=== PATIENT | male | born 1945 | race Caucasian/White ===

== ENCOUNTER 2017-09-15 11:22 | Emergency (ER) | payer MEDICARE, OTHER, SELFPAY ==
[2017-09-15 11:23] VITALS: BP 140/75; PULSE 56; RESP 16; TEMP 36.9; O2SAT 98; BMI 29.1
--- NOTE | 2017-09-15 11:42 | RAD_ITS ---
STUDY: X-RAY - RIGHT KNEE REASON FOR EXAM: Male, 72 years old. Pain following injury. TECHNIQUE: 3 view(s) of the knee. COMPARISON: None. FINDINGS: Normal visualized distal femur. Normal visualized proximal tibia and fibula. Normal proximal tibiofibular articulation. Normal medial femorotibial compartment. Normal lateral femorotibial compartment. Normal patellofemoral articulation. There are atherosclerotic calcifications. RAD/Knee 3 Views IMPRESSION: Normal x-ray examination of the knee. Electronically Signed: Michael Grant MD at 12:46 EDT Tel [phone], Service support ,
--- NOTE | 2017-09-15 12:56 | ED.VISSUMM ---
- ER Visit Summary Date of Service: 09/15/17 Chief Complaint: Right knee pain History of Present Illness: The patient is a 72 M who has right knee pain. Started yesterday. He stepped in a hole. He twisted his knee when that happened. He took no pain medications for this at home. He has been ambulatory on the knee Physical Examination: Vital signs reviewed. Right knee exam reveals no tenderness palpation. He does have pain when he ranges it and flexes it. Extensor mechanism is intact. He has 2+ pulses. Test Results: Right x-ray normal Emergency Department Course and Treatment: Patient will be given ibuprofen for pain at home. He will ice and elevate and will follow up with his PCP Treatment Plan: [] Disposition: Discharge Impression: Right knee pain This note was generated with [employer] dictation software. It may contain incorrect words, spelling, and punctuation that were not noted in review of the chart prior to signing ED Disposition - Plan for ED Patient: Chief Complaint: Lower Extremity Injury Referrals: Roland Adler MD [Primary Care Provider] -
--- NOTE | 2017-09-15 12:57 | ED.DEP ---
ED Disposition - Plan for ED Patient: Disposition: Home or Assisted Living Chief Complaint: Lower Extremity Injury Instructions: ED Knee Pain [facility] Prescriptions: Ibuprofen 600 mg PO TID #10 tab Referrals: Roland Adler MD [Primary Care Provider] -
[2017-09-15 13:19] VITALS: PULSE 62; RESP 16; O2SAT 98
== END 2017-09-15 13:19 | disposition home or self-care (01) ==
PROVIDERS: Emergency Provider Emergency Medicine; Family Provider Family Medicine; PCP Family Medicine
DX: M25.561 Pain in right knee (principal); I10 Essential (primary) hypertension; Z79.82 Long term (current) use of aspirin; Z79.899 Other long term (current) drug therapy
CPT/HCPCS: 73562; 99282

== ENCOUNTER → 2017-10-10 07:49 | Outpatient (CLI) | payer MEDICARE, OTHER, SELFPAY ==
[2017-10-10 10:38] LABS: AST(SGOT) 16 U/L (15-37); Alanine Aminotransfer ALT/SGPT 20 U/L (16-61); Albumin, Serum 3.9 g/dL (3.2-5.0); Alkaline Phosphatase 77 U/L (45-117); Bilirubin, Direct 0.21 mg/dL (0.00-0.30); Cholesterol 131 mg/dL (200); Globulin 3.8 g/dL (2.2-4.2); High Density Lipoprotein 40 mg/dL; Protein, Total 7.7 g/dL (6.4-8.2); Triglycerides 159 mg/dL; Very Low Density Lipoprotein 32 mg/dL (5-40)
[2017-10-10 11:31] LABS: Hemoglobin A1c 7.1 % (4.2-6.3)
== END ==
PROVIDERS: Family Provider Family Medicine; PCP Family Medicine; Visit Provider Family Medicine
DX: E11.65 Type 2 diabetes mellitus with hyperglycemia (principal); E78.5 Hyperlipidemia, unspecified
CPT/HCPCS: 36415; 80061; 80076; 83036

== ENCOUNTER → 2017-12-07 12:32 | Outpatient (CLI) | payer MEDICARE, OTHER, SELFPAY ==
--- NOTE | 2017-12-07 12:40 | RAD_ITS ---
STUDY: X-RAY CHEST REASON FOR EXAM: Male, 72 years old. Chest pain/pressure, cough TECHNIQUE: PA and lateral views of the chest. COMPARISON: 2010 FINDINGS: The lungs are clear and expanded. There is no demonstrated pleural abnormality. Normal size heart. Normal mediastinum and kim. Normal visualized pulmonary arteries. There is atherosclerotic calcification of the aortic arch with tortuosity. Normal visualized thoracic spine. Normal visualized ribs, clavicles, and shoulders. There is no demonstrated abnormality of the visualized soft tissue structures of the upper abdomen. RAD/Chest PA and Lateral IMPRESSION: No acute pulmonary process Electronically Signed: Dominic Vang MD at 13:50 EDT , Service support ,
== END ==
PROVIDERS: Family Provider Family Medicine; PCP Family Medicine
DX: R05 Cough (principal)
CPT/HCPCS: 71046

== ENCOUNTER → 2018-04-19 10:39 | Outpatient (CLI) | payer MEDICARE, OTHER, SELFPAY ==
[2018-04-19 12:04] LABS: Absolute Lymphocyte Count 1.52 X10^3/ul (0.83-4.51); Absolute Neutrophil Count 3.5 X10^3/uL (2.0-7.7); Basophil# 0.03 X10^3/uL; Basophil% 0.5 % (0-1); Eosinophil# 0.27 X10^3/uL; Eosinophils% 4.6 % (0-5); Hematocrit 48.1 % (40-54); Hemoglobin 15.8 g/dl (13.0-16.5); Lymphocyte # 1.52 X10^3/ul (4.0); Lymphocyte % 25.9 % (19-41); Mean Corp Hgb Conc 32.8 g/gl (32-36); Mean Corpuscular Hgb 30.8 pg (27.0-32.0); Mean Corpuscular Volume 93.8 fL (80-94); Mean Platelet Vol. 9.6 fl (6.2-12.0); Monocyte# 0.58 X10^3/uL; Monocyte% 9.9 % (0-10); Neutrophil # 3.45 X10^3/uL (2.7-7.7); Neutrophil % 58.8 % (47-70); Platelet Count 208 K/mm3 (150-450); RBC Distribution Width CV 13.1 % (11.6-14.6); Red Blood Count 5.13 M/mm3 (4.6-6.2); White Blood Count 5.9 K/mm3 (4.4-11.0)
[2018-04-19 12:06] LABS: Color, Urine Yellow (Yellow); Glucose, Dipstick Normal (Normal); Ketone-Dipstick Negative (Negative); Leukocyte Esterase-Dipstick Negative /ul (Negative); Nitrite-Dipstick Negative (Negative); Occult Blood-Urine Negative /ul (Negative); Protein-Dipstick 15 mg/dl (Negative); Urine Bilirubin Dipstick Negative (Negative); Urine Clarity Sl. Cloudy (Clear); Urine Urobilinogen Normal (Normal)
[2018-04-19 12:08] LABS: POSITIVE COUNT NO; POSITIVE DIFFERENTIAL NO; POSITIVE MORPHOLOGY NO
[2018-04-19 12:21] LABS: Hemoglobin A1c 6.8 % (4.2-6.3)
[2018-04-19 12:22] LABS: ALB/GLOB Ratio 1.1 RATIO (0.9-2.4); AST(SGOT) 13 U/L (15-37); Alanine Aminotransfer ALT/SGPT 32 U/L (16-61); Alkaline Phosphatase 70 U/L (45-117); Anion Gap 9 (5-15); BUN 19 mg/dL (7-18); BUN/Creat Ratio 17.8 RATIO (10-20); Calcium,Total 8.7 mg/dL (8.5-10.1); Chloride 106 mmol/L (98-107); Cholesterol 134 mg/dL (200); Creatinine, Serum 1.07 mg/dL (0.70-1.30); EST Glomerular Filtration Rate 72 mL/min (>60); Est Glom Filt Rate - Afr Amer 87 mL/min (>60); Globulin 3.5 g/dL (2.2-4.2); Glucose 126 mg/dL (74-106); High Density Lipoprotein 43 mg/dL; PSA,Total - Annual Screen 2.23 ng/mL (0.00-4.00); Potassium 4.2 mmol/L (3.5-5.1); Protein, Total 7.5 g/dL (6.4-8.2); Sodium Level 140 mmol/L (136-145); Triglycerides 175 mg/dL; Very Low Density Lipoprotein 35 mg/dL (5-40)
== END ==
PROVIDERS: Family Provider Family Medicine; PCP Family Medicine; Referring Provider Family Medicine; Visit Provider Family Medicine
DX: Z00.00 Encounter for general adult medical examination without abnormal findings (principal); E11.65 Type 2 diabetes mellitus with hyperglycemia; I10 Essential (primary) hypertension; E78.5 Hyperlipidemia, unspecified; Z12.5 Encounter for screening for malignant neoplasm of prostate
CPT/HCPCS: 36415; 80053; 80061; 81002; 83036; 84153; 85025; G0103

== ENCOUNTER → 2018-10-11 07:57 | Outpatient (CLI) | payer MEDICARE, OTHER, SELFPAY ==
[2018-10-11 10:34] LABS: AST(SGOT) 14 U/L (15-37); Alanine Aminotransfer ALT/SGPT 23 U/L (16-61); Albumin, Serum 3.9 g/dL (3.2-5.0); Alkaline Phosphatase 85 U/L (45-117); Bilirubin, Direct 0.19 mg/dL (0.00-0.30); Cholesterol 124 mg/dL (200); Globulin 3.5 g/dL (2.2-4.2); High Density Lipoprotein 41 mg/dL; Protein, Total 7.4 g/dL (6.4-8.2); Triglycerides 193 mg/dL; Very Low Density Lipoprotein 39 mg/dL (5-40)
[2018-10-11 10:38] LABS: Hemoglobin A1c 6.7 % (4.2-6.3)
== END ==
PROVIDERS: Family Provider Family Medicine; PCP Family Medicine; Referring Provider Family Medicine; Visit Provider Family Medicine
DX: E78.5 Hyperlipidemia, unspecified (principal); E11.65 Type 2 diabetes mellitus with hyperglycemia
CPT/HCPCS: 36415; 80061; 80076; 83036

== ENCOUNTER → 2019-11-06 08:02 | Outpatient (CLI) | payer MEDICARE, OTHER, SELFPAY ==
[2019-11-06 10:09] LABS: Absolute Lymphocyte Count 1.16 X10^3/uL (0.83-4.51); Absolute Neutrophil Count 3.7 X10^3/uL (2.0-7.7); Basophil# 0.05 X10^3/uL; Basophil% 0.9 % (0-1); Color, Urine Yellow (Yellow); Eosinophil# 0.36 X10^3/uL; Eosinophils% 6.3 % (0-5); Glucose, Dipstick Normal (Normal); Hematocrit 46.4 % (40-54); Hemoglobin 15.1 g/dL (13.0-16.5); Ketone-Dipstick Negative (Negative); Leukocyte Esterase-Dipstick Negative /ul (Negative); Lymphocyte # 1.16 X10^3/ul (4.0); Lymphocyte % 20.2 % (19-41); Mean Corp Hgb Conc 32.5 g/dL (32-36); Mean Corpuscular Hgb 30.5 pg (27.0-32.0); Mean Corpuscular Volume 93.7 fL (80-94); Mean Platelet Vol. 9.7 fl (6.2-12.0); Monocyte# 0.52 X10^3/uL; NRBC Flagged by Analyzer 0 % (0-5); Neutrophil # 3.65 X10^3/uL (2.7-7.7); Neutrophil % 63.4 % (47-70); Nitrite-Dipstick Negative (Negative); Occult Blood-Urine Negative /ul (Negative); Platelet Count 224 K/mm3 (150-450); Protein-Dipstick Negative (Negative); RBC Distribution Width CV 12.2 % (11.6-14.6); Red Blood Count 4.95 M/mm3 (4.6-6.2); Specific Gravity, Urine 1.015 (1.002-1.030); Urine Bilirubin Dipstick Negative (Negative); Urine Clarity Clear (Clear); Urine Urobilinogen Normal (Normal); White Blood Count 5.8 K/mm3 (4.4-11.0)
[2019-11-06 11:11] LABS: AST(SGOT) 17 U/L (15-37); Alanine Aminotransfer ALT/SGPT 28 U/L (16-61); Albumin, Serum 3.6 g/dL (3.2-5.0); Alkaline Phosphatase 71 U/L (45-117); Anion Gap 8 (5-15); BUN 16 mg/dL (7-18); BUN/Creat Ratio 13.9 RATIO (10-20); Calcium,Total 8.9 mg/dL (8.5-10.1); Chloride 105 mmol/L (98-107); Cholesterol 132 mg/dL (200); Creatinine, Serum 1.15 mg/dL (0.70-1.30); EST Glomerular Filtration Rate 66 mL/min (>60); Est Glom Filt Rate - Afr Amer 80 mL/min (>60); Globulin 3.5 g/dL (2.2-4.2); Glucose 191 mg/dL (74-106); High Density Lipoprotein 38 mg/dL; PSA,Total - Annual Screen 2.55 ng/mL (0.00-4.00); Potassium 4.2 mmol/L (3.5-5.1); Protein, Total 7.1 g/dL (6.4-8.2); Sodium Level 137 mmol/L (136-145); Triglycerides 185 mg/dL; Very Low Density Lipoprotein 37 mg/dL (5-40)
[2019-11-06 11:47] LABS: Hemoglobin A1c 8.4 % (3.8-5.6)
== END ==
PROVIDERS: PCP Family Medicine; Referring Provider Family Medicine; Visit Provider Family Medicine
DX: Z00.00 Encounter for general adult medical examination without abnormal findings (principal); I10 Essential (primary) hypertension; E78.5 Hyperlipidemia, unspecified; E11.65 Type 2 diabetes mellitus with hyperglycemia; Z12.5 Encounter for screening for malignant neoplasm of prostate
CPT/HCPCS: 36415; 80053; 80061; 81002; 83036; 84153; 85025; G0103

== ENCOUNTER → 2020-01-20 07:58 | Outpatient (CLI) | payer MEDICARE, OTHER, SELFPAY ==
[2020-01-20 10:42] LABS: Hematocrit 47.8 % (40-54); Hemoglobin 15.8 g/dL (13.0-16.5); Mean Corp Hgb Conc 33.1 g/dL (32-36); Mean Corpuscular Hgb 30.6 pg (27.0-32.0); Mean Corpuscular Volume 92.6 fL (80-94); Mean Platelet Vol. 10.1 fl (6.2-12.0); Platelet Count 254 K/mm3 (150-450); RBC Distribution Width SD 40.9 fl (35.1-43.9); Red Blood Count 5.16 M/mm3 (4.6-6.2); White Blood Count 6.5 K/mm3 (4.4-11.0)
[2020-01-20 11:37] LABS: AST(SGOT) 19 U/L (15-37); Alanine Aminotransfer ALT/SGPT 34 U/L (16-61); Anion Gap 10 (5-15); BUN 15 mg/dL (7-18); Chloride 105 mmol/L (98-107); Cholesterol 133 mg/dL (200); Creatinine, Serum 1.21 mg/dL (0.70-1.30); EST Glomerular Filtration Rate 62 mL/min (>60); Est Glom Filt Rate - Afr Amer 75 mL/min (>60); High Density Lipoprotein 40 mg/dL; Sodium Level 137 mmol/L (136-145); Triglycerides 209 mg/dL; Very Low Density Lipoprotein 42 mg/dL (5-40)
== END ==
PROVIDERS: PCP Family Medicine
DX: I10 Essential (primary) hypertension (principal); E78.2 Mixed hyperlipidemia; E66.09 Other obesity due to excess calories
CPT/HCPCS: 36415; 80051; 80061; 82565; 84450; 84460; 84520; 85027

== ENCOUNTER → 2020-06-01 08:04 | Outpatient (CLI) | payer MEDICARE, OTHER, SELFPAY ==
[2020-06-01 10:29] LABS: Albumin, Serum 3.8 g/dL (3.2-5.0); BUN 14 mg/dL (7-18); BUN/Creat Ratio 11.1 RATIO (10-20); Calcium,Total 9.3 mg/dL (8.5-10.1); Chloride 105 mmol/L (98-107); Cholesterol 134 mg/dL (200); Creatinine, Serum 1.26 mg/dL (0.70-1.30); EST Glomerular Filtration Rate 59 mL/min (>60); Est Glom Filt Rate - Afr Amer 72 mL/min (>60); Glucose 152 mg/dL (74-106); High Density Lipoprotein 39 mg/dL; Phosphorus 3.3 mg/dL (2.5-4.9); Potassium 4.3 mmol/L (3.5-5.1); Sodium Level 139 mmol/L (136-145); Triglycerides 204 mg/dL; Very Low Density Lipoprotein 41 mg/dL (5-40)
[2020-06-01 10:33] LABS: Vitamin D,25 Hydroxy 26.6 ng/mL
[2020-06-01 10:41] LABS: Microalbumin,Random Urine 17.9 mg/L (NO RANGE EST.); Microalbumin:Creatinine Ratio 10.3 mg/g CRE (<30 mg/g CRE)
[2020-06-02 12:57] LABS: C-Peptide 4.6 ng/mL (1.1-4.4)
== END ==
PROVIDERS: PCP Family Medicine
DX: E11.65 Type 2 diabetes mellitus with hyperglycemia (principal); E78.2 Mixed hyperlipidemia; Z71.3 Dietary counseling and surveillance
CPT/HCPCS: 36415; 80061; 80069; 82043; 82306; 82570; 84681

== ENCOUNTER → 2020-08-25 08:13 | Outpatient (CLI) | payer MEDICARE, OTHER, SELFPAY ==
[2020-08-25 09:44] LABS: Absolute Lymphocyte Count 1.14 X10^3/uL (0.83-4.51); Basophil# 0.08 X10^3/uL; Basophil% 1.6 % (0-1); Eosinophil# 0.39 X10^3/uL; Eosinophils% 7.7 % (0-5); Hematocrit 46.4 % (40-54); Hemoglobin 15.1 g/dL (13.0-16.5); Lymphocyte # 1.14 X10^3/ul (0.83-4.51); Lymphocyte % 22.4 % (19-41); Mean Corp Hgb Conc 32.5 g/dL (32-36); Mean Corpuscular Hgb 30.8 pg (27.0-32.0); Mean Corpuscular Volume 94.5 fL (80-94); Mean Platelet Vol. 10.2 fl (6.2-12.0); Monocyte# 0.49 X10^3/uL; Monocyte% 9.6 % (0-10); NRBC Flagged by Analyzer 0 % (0-5); Neutrophil # 2.97 X10^3/uL (2.7-7.7); Neutrophil % 58.3 % (47-70); Platelet Count 207 K/mm3 (150-450); RBC Distribution Width CV 12.8 % (11.6-14.6); RBC Distribution Width SD 43.9 fl (35.1-43.9); Red Blood Count 4.91 M/mm3 (4.6-6.2); White Blood Count 5.1 K/mm3 (4.4-11.0)
[2020-08-25 10:20] LABS: ALB/GLOB Ratio 1.1 RATIO (0.9-2.4); AST(SGOT) 16 U/L (15-37); Alanine Aminotransfer ALT/SGPT 21 U/L (16-61); Albumin, Serum 3.6 g/dL (3.2-5.0); Alkaline Phosphatase 70 U/L (45-117); Anion Gap 8 (5-15); BUN 19 mg/dL (7-18); BUN/Creat Ratio 16.4 RATIO (10-20); Chloride 109 mmol/L (98-107); Cholesterol 109 mg/dL (200); Creatinine, Serum 1.16 mg/dL (0.70-1.30); EST Glomerular Filtration Rate 65 mL/min (>60); Est Glom Filt Rate - Afr Amer 79 mL/min (>60); Globulin 3.4 g/dL (2.2-4.2); Glucose 144 mg/dL (74-106); High Density Lipoprotein 40 mg/dL; Potassium 4.1 mmol/L (3.5-5.1); Sodium Level 141 mmol/L (136-145); Triglycerides 113 mg/dL; Very Low Density Lipoprotein 23 mg/dL (5-40)
[2020-08-25 11:39] LABS: Hemoglobin A1c 6.2 % (3.8-5.6)
== END ==
PROVIDERS: PCP Family Medicine; Referring Provider Family Medicine; Visit Provider Family Medicine
DX: Z00.00 Encounter for general adult medical examination without abnormal findings (principal); I10 Essential (primary) hypertension; E11.9 Type 2 diabetes mellitus without complications; E78.5 Hyperlipidemia, unspecified
CPT/HCPCS: 36415; 80053; 80061; 83036; 85025

== ENCOUNTER → 2020-11-05 07:55 | Outpatient (CLI) | payer MEDICARE, OTHER, SELFPAY ==
[2020-11-05 10:38] LABS: PSA,Total - Annual Screen 2.78 ng/mL (0.00-4.00)
== END ==
PROVIDERS: PCP Family Medicine; Referring Provider Family Medicine; Visit Provider Family Medicine
DX: Z12.5 Encounter for screening for malignant neoplasm of prostate (principal)
CPT/HCPCS: 36415; 84153; G0103

== ENCOUNTER → 2021-01-22 08:26 | Outpatient (CLI) | payer MEDICARE, OTHER, SELFPAY ==
[2021-01-22 10:05] LABS: Hematocrit 44.9 % (40-54); Hemoglobin 14.9 g/dL (13.0-16.5); Mean Corp Hgb Conc 33.2 g/dL (32-36); Mean Corpuscular Volume 93.3 fL (80-94); Mean Platelet Vol. 9.6 fl (6.2-12.0); Platelet Count 213 K/mm3 (150-450); RBC Distribution Width CV 12.7 % (11.6-14.6); RBC Distribution Width SD 43.8 fl (35.1-43.9); Red Blood Count 4.81 M/mm3 (4.6-6.2); White Blood Count 6.5 K/mm3 (4.4-11.0)
[2021-01-22 10:27] LABS: AST(SGOT) 13 U/L (15-37); Alanine Aminotransfer ALT/SGPT 21 U/L (16-61); Anion Gap 4 (5-15); BUN 19 mg/dL (7-18); BUN/Creat Ratio 15.1 RATIO (10-20); Calcium,Total 8.9 mg/dL (8.5-10.1); Chloride 107 mmol/L (98-107); Cholesterol 106 mg/dL (200); Creatinine, Serum 1.26 mg/dL (0.70-1.30); EST Glomerular Filtration Rate 59 mL/min (>60); Est Glom Filt Rate - Afr Amer 72 mL/min (>60); Glucose 149 mg/dL (74-106); High Density Lipoprotein 40 mg/dL; Potassium 4.3 mmol/L (3.5-5.1); Sodium Level 139 mmol/L (136-145); Triglycerides 142 mg/dL; Very Low Density Lipoprotein 28 mg/dL (5-40)
[2021-01-22 11:57] LABS: Hemoglobin A1c 6.2 % (3.8-5.6)
== END ==
PROVIDERS: PCP Family Medicine
DX: I10 Essential (primary) hypertension (principal); E78.2 Mixed hyperlipidemia; E11.9 Type 2 diabetes mellitus without complications
CPT/HCPCS: 36415; 80048; 80061; 83036; 84450; 84460; 85027

== ENCOUNTER → 2021-02-16 07:54 | Outpatient (CLI) | payer MEDICARE, OTHER, SELFPAY ==
[2021-02-16 10:22] LABS: ALB/GLOB Ratio 0.9 RATIO (0.9-2.4); AST(SGOT) 15 U/L (15-37); Alanine Aminotransfer ALT/SGPT 22 U/L (16-61); Albumin, Serum 3.5 g/dL (3.2-5.0); Alkaline Phosphatase 74 U/L (45-117); Anion Gap 8 (5-15); BUN 15 mg/dL (7-18); BUN/Creat Ratio 11.5 RATIO (10-20); Calcium,Total 9.1 mg/dL (8.5-10.1); Chloride 104 mmol/L (98-107); Cholesterol 101 mg/dL (200); EST Glomerular Filtration Rate 57 mL/min (>60); Est Glom Filt Rate - Afr Amer 69 mL/min (>60); Glucose 143 mg/dL (74-106); Hemoglobin A1c 6.2 % (3.8-5.6); High Density Lipoprotein 41 mg/dL; Protein, Total 7.5 g/dL (6.4-8.2); Sodium Level 138 mmol/L (136-145); Triglycerides 79 mg/dL; Very Low Density Lipoprotein 16 mg/dL (5-40)
== END ==
PROVIDERS: PCP Family Medicine; Referring Provider Family Medicine; Visit Provider Family Medicine
DX: I10 Essential (primary) hypertension (principal); E11.9 Type 2 diabetes mellitus without complications; E78.5 Hyperlipidemia, unspecified
CPT/HCPCS: 36415; 80053; 80061; 83036

== ENCOUNTER → 2021-03-15 07:22 | Outpatient (CLI) | payer MEDICARE, OTHER, SELFPAY ==
[2021-03-15 10:15] LABS: Albumin, Serum 3.6 g/dL (3.2-5.0); BUN 15 mg/dL (7-18); BUN/Creat Ratio 11.9 RATIO (10-20); Calcium,Total 8.9 mg/dL (8.5-10.1); Chloride 108 mmol/L (98-107); Cholesterol 114 mg/dL (200); Creatinine, Serum 1.26 mg/dL (0.70-1.30); EST Glomerular Filtration Rate 59 mL/min (>60); Est Glom Filt Rate - Afr Amer 72 mL/min (>60); Glucose 151 mg/dL (74-106); High Density Lipoprotein 39 mg/dL; Phosphorus 2.6 mg/dL (2.5-4.9); Sodium Level 142 mmol/L (136-145); Triglycerides 190 mg/dL; Very Low Density Lipoprotein 38 mg/dL (5-40); Vitamin D,25 Hydroxy 36.3 ng/mL
[2021-03-15 10:44] LABS: Microalbumin,Random Urine 19.5 mg/L (NO RANGE EST.); Microalbumin:Creatinine Ratio 9.7 mg/g CRE (<30 mg/g CRE)
[2021-03-16 13:20] LABS: C-Peptide 4.1 ng/mL (1.1-4.4)
== END ==
PROVIDERS: PCP Family Medicine
DX: E11.65 Type 2 diabetes mellitus with hyperglycemia (principal); E78.2 Mixed hyperlipidemia; E55.9 Vitamin D deficiency, unspecified; Z71.3 Dietary counseling and surveillance
CPT/HCPCS: 36415; 80061; 80069; 82043; 82306; 82570; 84681

== ENCOUNTER → 2021-05-13 08:12 | Outpatient (CLI) | payer MEDICARE, OTHER, SELFPAY ==
[2021-05-13 10:31] LABS: Vitamin B12 390 pg/mL (211-911)
[2021-05-13 10:35] LABS: Thyroid Stim Hormone (TSH) 3.25 uIU/mL (0.358-3.74)
== END ==
PROVIDERS: PCP Family Medicine
DX: G31.84 Mild cognitive impairment of uncertain or unknown etiology (principal)
CPT/HCPCS: 36415; 82607; 84443

== ENCOUNTER → 2021-09-20 | Outpatient (CLI) | payer MEDICARE, OTHER, SELFPAY ==
[2021-09-20 09:54] LABS: Absolute Lymphocyte Count 1.34 X10^3/uL (0.83-4.51); Absolute Neutrophil Count 3.8 X10^3/uL (2.0-7.7); Basophil# 0.07 X10^3/uL; Basophil% 1.2 % (0-1); Eosinophil# 0.34 X10^3/uL; Eosinophils% 5.6 % (0-5); Hematocrit 46.9 % (40-54); Hemoglobin 15.4 g/dL (13.0-16.5); Lymphocyte # 1.34 X10^3/ul (0.83-4.51); Mean Corp Hgb Conc 32.8 g/dL (32-36); Mean Corpuscular Volume 94.4 fL (80-94); Mean Platelet Vol. 9.5 fl (6.2-12.0); Monocyte# 0.54 X10^3/uL; Monocyte% 8.9 % (0-10); NRBC Flagged by Analyzer 0 % (0-5); Neutrophil # 3.78 X10^3/uL (2.7-7.7); Neutrophil % 62.1 % (47-70); Platelet Count 245 K/mm3 (150-450); RBC Distribution Width CV 12.9 % (11.6-14.6); RBC Distribution Width SD 44.5 fl (35.1-43.9); Red Blood Count 4.97 M/mm3 (4.6-6.2); White Blood Count 6.1 K/mm3 (4.4-11.0)
[2021-09-20 10:26] LABS: AST(SGOT) 15 U/L (15-37); Alanine Aminotransfer ALT/SGPT 20 U/L (16-61); Albumin, Serum 3.7 g/dL (3.2-5.0); Alkaline Phosphatase 79 U/L (45-117); Anion Gap 9 (5-15); BUN 16 mg/dL (7-18); BUN/Creat Ratio 13.1 RATIO (10-20); Calcium,Total 9.3 mg/dL (8.5-10.1); Chloride 104 mmol/L (98-107); Cholesterol 106 mg/dL (200); Creatinine, Serum 1.22 mg/dL (0.70-1.30); EST Glomerular Filtration Rate 61 mL/min (>60); Est Glom Filt Rate - Afr Amer 74 mL/min (>60); Globulin 3.7 g/dL (2.2-4.2); Glucose 158 mg/dL (74-106); High Density Lipoprotein 42 mg/dL; Potassium 4.2 mmol/L (3.5-5.1); Protein, Total 7.4 g/dL (6.4-8.2); Sodium Level 138 mmol/L (136-145); Triglycerides 123 mg/dL; Very Low Density Lipoprotein 25 mg/dL (5-40)
[2021-09-20 10:37] LABS: Hemoglobin A1c 6.4 % (3.8-5.6)
== END | disposition home or self-care (01) ==
LOC: MTLAB 07:33
PROVIDERS: PCP Family Medicine; Referring Provider Family Medicine; Visit Provider Family Medicine
DX: E11.9 Type 2 diabetes mellitus without complications (principal); I10 Essential (primary) hypertension; E78.5 Hyperlipidemia, unspecified; Z12.5 Encounter for screening for malignant neoplasm of prostate
CPT/HCPCS: 36415; 80053; 80061; 83036; 85025

== ENCOUNTER → 2021-11-08 | Outpatient (CLI) | payer MEDICARE, OTHER, SELFPAY ==
[2021-11-08 10:35] LABS: PSA,Total - Annual Screen 3.51 ng/mL (0.00-4.00)
== END | disposition home or self-care (01) ==
PROVIDERS: PCP Family Medicine; Visit Provider Family Medicine
DX: Z12.5 Encounter for screening for malignant neoplasm of prostate (principal); E78.5 Hyperlipidemia, unspecified
CPT/HCPCS: 36415; 84153; G0103

== ENCOUNTER → 2022-09-05 | Outpatient (CLI) | payer MEDICARE, OTHER, SELFPAY ==
[2022-09-05 10:29] LABS: Albumin, Serum 3.8 g/dL (3.2-5.0); BUN 17 mg/dL (7-18); BUN/Creat Ratio 13.5 RATIO (10-20); Calcium,Total 8.8 mg/dL (8.5-10.1); Chloride 110 mmol/L (98-107); Cholesterol 185 mg/dL (200); Creatinine, Serum 1.26 mg/dL (0.70-1.30); EST Glomerular Filtration Rate 59 mL/min (>60); Est Glom Filt Rate - Afr Amer 71 mL/min (>60); Glucose 155 mg/dL (74-106); High Density Lipoprotein 45 mg/dL; Phosphorus 2.6 mg/dL (2.5-4.9); Potassium 4.3 mmol/L (3.5-5.1); Sodium Level 140 mmol/L (136-145); Triglycerides 149 mg/dL; Very Low Density Lipoprotein 30 mg/dL (5-40); Vitamin D,25 Hydroxy 34.6 ng/mL
[2022-09-05 10:46] LABS: Microalbumin,Random Urine 50.4 mg/L (NO RANGE EST.); Microalbumin:Creatinine Ratio 34.1 mg/g CRE (<30 mg/g CRE)
[2022-09-06 13:08] LABS: C-Peptide 3.2 ng/mL (1.1-4.4)
== END | disposition home or self-care (01) ==
LOC: MTLAB 07:59
PROVIDERS: PCP Family Medicine
DX: E11.65 Type 2 diabetes mellitus with hyperglycemia (principal); E78.2 Mixed hyperlipidemia; I10 Essential (primary) hypertension; E55.9 Vitamin D deficiency, unspecified; Z71.3 Dietary counseling and surveillance
CPT/HCPCS: 36415; 80061; 80069; 82043; 82306; 82570; 84681

== ENCOUNTER → 2023-04-24 | Outpatient (CLI) | payer MEDICARE, OTHER, SELFPAY ==
--- OUTSIDE RECORDS SUMMARY | 2023-04-24 09:08 | XMS RPT_ITS | CCD ---
Author Name Unknown Address [address] [place] [address] Organization [facility] Care Team Providers Care Blood Bank Laboratory Technologist Name Role Phone Roland Puente Unavailable Unavailable Unavailable Pcp, No Primary Care Provider Roland Stephenson Primary Care Unavailab kenton Lam, Dr. Onel De La Torre Referring Carmelita vailable Genaro, Dr. Onel De La Torre Attending Carmelita vailable Genaro, Dr. Onel De La Torre Attending Carmelita vailable Roland Puente Primary Care Unavailab kenton Lam, Dr. Onel De La Torre Referring Carmelita Roland Woodall MD Primary Care Provider Unavailable Primary Care Provider UnavailDr. Reinaldo Joya Attending Unav ailDr. Roland Conti Primary Care Unava ilROLAND Conti Primary Care Physician ROLAND PUENTE Primary Care Unavailable Duarte Castellanos Attending Unavailable Roland Puente MD Primary Care Provider ONEL LAM Attending Unavailable ROLAND PUENTE Primary Care Unavailab REINALDO Glover Attending Unavaila ROLAND Reed Primary Care Unavailable REINALDO DASILVA Attending Unavaila ROLAND Reed Primary Care Unavailable REINALDO DASILVA Attending Unavaila ROLAND Reed Primary Care Unavailable REINALDO DASILVA Attending Unavaila ROLAND Reed Primary Care Unavailable REINALDO DASILVA Attending ROLAND Garcia Primary Care Unavailable REINALDO DASILVA Attending Fidelina manriquez Medications Current Medications Medication Drug Class(es) Dates Sig (Normalized) Sig (Original) acetaminophen 325 mg oral capsule (1 source) Start: 05-07-2020 Tylenol 325 mg oral capsule 1-2 cap(s), Oral, as needed for pain/fever, Refills(s) 0 Start Date: 05/07/20 Status: Ordered aspirin 81 mg oral tablet (7 sources) Platelet Aggregation Inhibitor, Nonsteroidal Anti-inflammatory Drug Start: 05-07-2020 take 1 tablet by mouth once daily aspirin 81 mg oral tablet = 1 tab(s), Oral, Daily, Refills(s) 0 Start Date: 05/07/20 Status: Ordered Completed/Discontinued Medications Medication Drug Class(es) Dates Sig (Normalized) Sig (Original) docusate sodium 100 mg oral capsule (3 sources) Start: 07-09-2021 End: 01-18-2023 take 1 capsule by mouth twice daily docusate sodium (Colace) 100 mg capsule Take 1 capsule (100 mg) by mouth 2 times a day. 0 07/09/2021 01/18/2023 Discontinued (Therapy completed) Fish Oil + D3 8219-3337 MG-UNIT Oral Capsule (2 sources) Fish Oil + D3 6645-8034 MG-UNIT Oral Capsule Once daily Quantity: 0 Refills: 0 Ordered: 21-Jan-2021 DO Active [id number] sh oil-D3 (Fish Oil-Vit D3) 360 mg-1,200 mg -1,000 unit capsule (1 source) End: 01-18-2023 take 1 capsule by mouth once daily uzbjg-[id number]-epa-f aspen oil-D3 (Fish Oil-Vit D3) 360 mg-1,200 mg -1,000 unit capsule Take 1 capsule by mouth once daily. 0 01/18/2023 Discontinued (Ineffective) SITagliptin 100 mg oral tablet (1 source) Dipeptidyl Peptidase 4 Inhibitor Start: 06-19-2020 take 1 tablet by mouth once daily Januvia 100 MG Oral Tablet TAKE 1 TABLET DAILY. Quantity: 0 Refills: 0 Ordered: 23-Nov-2020 DO Start : 19-Jun-2020 Active triamcinolone acetonide 5 mg/ml topical cream (1 source) Corticosteroid Start: 05-20-2020 Triamcinolone Acetonide 0.5 % External Cream Quantity: 60 Refills: 0 Ordered: 26-Sep-2020 DO Start : 20-May-2020 Complete Problems Active Problems Problem Classification Problem Date Documented Da te Episodic/Chronic Acquired foot deformities (5 sources) Hammer toe; Translations: [Other hammer toe(s) (acquired), right foot] Onset: 04-14-2022 Chronic Allergic reactions (1 source) Urticaria; Translations: [Urticaria, unspecified] Onset: 09-16-2022 Episodic Delirium, dementia, and amnestic and other cognitive disorders (2 sources) Dementia; Translations: [Dementia, unspecified, without behavioral disturbance] Onset: 2023 2023 Chronic Diabetes mellitus with complications (8 sources) Mononeuropathy due to type 2 diabetes mellitus; Translations: [Type 2 diabetes mellitus with diabetic mononeuropathy] Onset: 04-14-2022 Chronic Diabetes mellitus without complication (3 sources) Diabetes mellitus; Translations: [Diabetes mellitus without mention of complication, type II or unspecified type, not stated as uncontrolled] Onset: 2023 2023 Chronic Disorders of lipid metabolism (6 sources) Mixed hyperlipidemia; Translations: [Mixed hyperlipidemia] Onset: 2023 01-18-2023 Chronic Essential hypertension (6 sources) Benign essential hypertension; Translations: [Benign essential hypertension] Onset: 2023 01-18-2023 Chronic Mycoses (4 sources) Onychomycosis; Translations: [Tinea unguium] Onset: 01-26-2023 10-13-2022 Episodic Other nutritional; endocrine; and metabolic disorders (2 sources) Obesity; Translations: [Obesity, unspecified] Onset: 2023 2023 Chronic Other nutritional; endocrine; and metabolic disorders (1 source) Overweight in adulthood with body mass index of 25 or more but less than 30; Translations: [Overweight] Episodic Other skin disorders (2 sources) Dystrophia unguium; Translations: [Nail dystrophy] Episodic Peripheral and visceral atherosclerosis (6 sources) Peripheral arterial insufficiency; Translations: [Peripheral vascular disease, unspecified] Onset: 07-14-2022 07-14-2022 Chronic Residual codes; unclassified (2 sources) Non-smoker; Translations: [Other specified conditions influencing health status] Episodic Past or Other Problems Problem Classification Problem Date Documented Da te Episodic/Chronic Acquired foot deformities (5 sources) Hallux valgus; Translations: [Bunion of right foot] Onset: 04-14-2022 Episodic Other non-traumatic joint disorders (5 sources) Soft tissue lesion of shoulder region; Translations: [Other specified joint disorders, unspecified shoulder] Onset: 06-05-2006 06-05-2006 Episodic Other skin disorders (2 sources) Nail dystrophy; Translations: [Nail dystrophy] Onset: 07-14-2022 Episodic Unclassified (1 source) Never smoked tobacco; Translations: [Never a smoker] Unclassified (1 source) Onset: 01-18-2023 01-18-2023 Results Test Name Value Interpretation Reference Range Facil ity Vital Signs Date Time Vital Sign Value Performing Clinician Facility 01-26-2023 10:20-0400 Diastolic blood pressure 80 mm[Hg] Reinaldo Dasilva DPM Work Phone: [facility] 01-26-2023 10:20-0400 Heart rate 65 /min Reinaldo Dasilva DPM Work Phone: [facility] 01-26-2023 10:20-0400 Systolic blood pressure 147 mm[Hg] Reinaldo Dasilva DPM Work Phone: [facility] 01-26-2023 10:13-0400 Body temperature 100 [degF] Reinaldo Dasilva DPM Work Phone: [facility] 01-18-2023 11:20-0400 Body height 177.8 cm Onel Lam MD Work Phone: [facility] 01-18-2023 11:20-0400 Body mass index (BMI) [Ratio] 29.99 kg/m2 nOel Lam MD Work Phone: [facility] 01-18-2023 11:20-0400 Body weight 94.8 kg Onel Lam MD Work Phone: [facility] 01-18-2023 11:20-0400 Diastolic blood pressure 68 mm[Hg] Onel Lam MD Work Phone: [facility] 01-18-2023 11:20-0400 Heart rate 66 /min Onel Lam MD Work Phone: [facility] 01-18-2023 11:20-0400 Systolic blood pressure 116 mm[Hg] Onel Lam MD Work Phone: [facility] 10-13-2022 09:56-0400 Diastolic blood pressure 71 mm[Hg] Reinaldo Dasilva DPM Work Phone: [facility] 10-13-2022 09:56-0400 Heart rate 65 /min Reinaldo Dasilva DPM Work Phone: [facility] 10-13-2022 09:56-0400 Systolic blood pressure 146 mm[Hg] Reinaldo Dasilva DPM Work Phone: [facility] 10-13-2022 09:52-0400 Body temperature 99.7 [degF] Reinaldo Dasilva DPM Work Phone: [facility] 09-16-2022 21:07-0400 Body temperature 97.7 [degF] Duarte Castellanos [facility] 09-16-2022 21:07-0400 Diastolic blood pressure 86 mm[Hg] Duarte Castellanos [facility] 09-16-2022 21:07-0400 Heart rate 59 /min Duarte Castellanos [facility] 09-16-2022 21:07-0400 Respiratory rate 18 /min Duarte Castellanos [facility] 09-16-2022 21:07-0400 SaO2% (BldA) [Mass fraction] 96 % Duarte Castellanos [facility] 09-16-2022 21:07-0400 Systolic blood pressure 180 mm[Hg] Duarte Castellanos [facility] 07-14-2022 08:02-0400 Diastolic blood pressure 75 mm[Hg] Reinaldo Vidya DPM Work Phone: [facility] 07-14-2022 08:02-0400 Heart rate 62 /min Reinaldo Dasilva DPM Work Phone: [facility] 07-14-2022 08:02-0400 Systolic blood pressure 147 mm[Hg] Reinaldo Dasilva DPM Work Phone: [facility] 07-14-2022 07:57-0400 Body temperature 98.4 [degF] Reinaldo Dasilva DPM Work Phone: [facility] 04-14-2022 10:43-0500 Diastolic blood pressure 84 mm[Hg] Reinaldo Dasilva DPM Work Phone: [facility] 04-14-2022 10:43-0500 Heart rate 67 /min Reinaldo Dasilva DPM Work Phone: [facility] 04-14-2022 10:43-0500 Systolic blood pressure 135 mm[Hg] Reinaldo Miguelmerman DPM Work Phone: [facility] 04-14-2022 10:39-0500 Body temperature 98.6 [degF] Reinaldo Miguelmerman DPM Work Phone: [facility] 01-19-2022 08:49-0400 Body height 177.8 cm Roland Puente Work Phone: [facility] [employer] [address] DO Work Phone: 01-19-2022 08:49-0400 Body mass index (BMI) [Ratio] 27.84 kg/m2 Roland Puente Work Phone: [facility] [address] [place] [address] DO Work Phone: 01-19-2022 08:49-0400 Body surface area Derived from formula 2.06 m2 Roland Puente Work Phone: [facility] [place] [address] DO Work Phone: 01-19-2022 08:49-0400 Body weight 88 kg Roland G Vitor Work Phone: [facility] [address] DO Work Phone: 01-19-2022 08:49-0400 Diastolic blood pressure 58 mm[Hg] Roland Melissa Vitor Work Phone: [facility] [address] DO Work Phone: 01-19-2022 08:49-0400 Heart rate 60 /min Roland G Vitor Work Phone: [facility] [address] DO Work Phone: 01-19-2022 08:49-0400 Systolic blood pressure 128 mm[Hg] Roland Melissa Vitor Work Phone: [facility] [address] [place] [address] DO Work Phone: 01-21-2021 09:48-0400 Diastolic blood pressure 65 mm[Hg] Roland Melissa Vitor Work Phone: [facility] [address] DO Work Phone: 01-21-2021 09:48-0400 Systolic blood pressure 110 mm[Hg] Roland Melissa Vitor Work Phone: [facility] [address] [place] [address] DO Work Phone: 01-21-2021 09:29-0400 Body height 177.8 cm Roland Melissa Vitor Work Phone: [facility] [address] [place] [address] DO Work Phone: 01-21-2021 09:29-0400 Body mass index (BMI) [Ratio] 29.56 kg/m2 Roland G Vitor Work Phone: [facility] [address] [place] [address] DO Work Phone: 01-21-2021 09:29-0400 Body surface area Derived from formula 2.11 m2 Roland G Vitor Work Phone: [facility] [employer] [address] DO Work Phone: 01-21-2021 09:29-0400 Body weight 93.44 kg Roland Puente Work Phone: [facility] [employer] [address] DO Work Phone: 01-21-2021 09:29-0400 Diastolic blood pressure 72 mm[Hg] Roland Puente Work Phone: [facility] [employer] [address] DO Work Phone: 01-21-2021 09:29-0400 Heart rate 76 /min Roland Puente Work Phone: [facility] [employer] [address] DO Work Phone: 01-21-2021 09:29-0400 Systolic blood pressure 140 mm[Hg] Roland Puente Work Phone: [facility] [employer] Cal[place]illo DO Work Phone: Encounters Encounter Date Encounter Type Care Provider Facility Start: 01-26-2023 End: 01-26-2023 ambulatory ROLAND PUENTE [facility] Start: 01-26-2023 End: 01-26-2023 Patient encounter procedure Reinaldo Dasilva DPM Work Phone: [facility] Procedures Date Procedure Procedure Detail Performing Clinician Start: 06-25-2018 Total colonoscopy Kevyn maninder Melissa Puente Work Phone: Colonoscopy Duarte Castellanos Discectomy of spine Duarte Oneil as Operative procedure on knee Roland Puente Work Phone: Procedure on back Roland Puente Work Phone: Plan of Treatment Date Care Activity Detail Author Start: 2024 End: 2024 Patient encounter procedure 2024 10:00 AM EDT Office Visit [address] [address] Onel Lam MD [address] [facility] [address] [place] [address] [facility] Start: 06-01-2023 End: 06-01-2023 Patient encounter procedure 06/01/2023 9:30 AM EST Office Visit [facility] [address] [place] [address] Reinaldo Dasilva, JONATHAN [address] [place] [address] [facility] Start: 01-18-2023 End: 01-19-2024 Alanine aminotransferase [Enzymatic activity/volume] in Serum or Plasma by With P-5'-P Alanine Aminotransferase Lab Routine Mixed hyperlipidemia Expected: 01/18/2023 (Approximate), Expires: 01/19/2024 [facility] Work Phone: Immunizations Immunization Date Immunization Notes Care Provider Fa cili 04-20-2020 zoster vaccine recombinant Onel Lam MD Work Phone: [facility] Work Phone: 01-09-2020 zoster vaccine recombinant Onel Lam MD Work Phone: [facility] Work Phone: 03-27-2014 pneumococcal polysaccharide vaccine, 23 valent Roland Puente Work Phone: [facility] 250 Work Phone: Payers Date Payer Category Payer Medicare [id number] 2010 Medicare [id number] 2007 Private Health Insurance [id number] 2007 Private Health Insurance [id number] 1946 Unknown [id number] 2.16. [id number] 1946 Unknown [id number] 2.16. [id number] 1946 Unknown [id number] 2.16.8 [id number] 1946 Unknown [id number] 2.16.8 [id number] 1946 Unknown [id number] 2.16.8 [id number] 1946 Unknown [id number] 2.16. [id number] 1946 Unknown [id number] 2.16. [id number] 1946 Unknown [id number] 2.16. [id number] 1946 Unknown [id number] 2.16. [id number] 1946 Unknown [id number] 2.16. [id number] 1946 Unknown [id number] 2.16. [id number] Unknown Social History Date Type Detail Facility Start: 04-14-2022 End: 10-13-2022 No alcohol use No alcohol use [place] [address] DO Work Phone: Medical Equipment Procedure Code Equipment Code Equipment Origin al Text Equipment Identifier Dates daily . [id number] Start: 02-14-2022 TEST BLOOD SUAGR S ONCE A DAY. ICD 10 E11.65 [id number] Start: 02-13-2022 GLUCOSE STRIPS, Print Requisition, Supply, 100 Start: 05-08-2020 LANCET, Print Requisition, Supply, 100 Start: 05-08-2020 TEST BLOOD SUAGR S ONCE A DAY. ICD 10 E11.65 [id number] Start: 02-13-2022 Functional Status Date Assessment Result Facility 09-16-2022 Functional Status N/A [facility] Clinical Notes 04-14-2022 to 01-26-2023 Reinaldo Dasilva DPM - 01/26/2023 10:22 AM Mónica Lam MD - 01/18/2023 11:10 AM EDTPatient Reinaldo Lipscomb DPM - 10/13/2022 10:16 AM EDT Note Date & Type Note Facility 01-26-2023 History of Present illness Narrative Subjective :Pt is a 78 y.o. male seen at the office complaining of fungal toe nails . Pt is wanting treatment today.Pt has type 2 diabetes Objective: Int: Toe nails 1both feet Thick, yellow, dystrophic, crumbly , painful with subungal debris Neuro: Diminished cristy feet Vas: DP - palpable, both feetPTpalpable, both feet Assessment:Onychomycosis great toes and diabetic neuropathy cristy feet Plan: I debrided toe nails 1-5 cristy feet with nail nippers. I also discussed treatment for the nail fungus which includes topical , oral or surgical removal. RTC 4 months. Procedures documented in this encounter [facility] 01-18-2023 History of Present illness Narrative Subjective Juanjo Devi is a 78 y.o. male Chief Complaint Follow-up HPI Patient is in the office for follow-up for the problems noted below accompanied by his . Apparently has developed significant dementia since he was last seen. He is currently being managed by neurology on medical therapy. His indicated that he has had no trouble with dyspnea or chest pain or palpitations and has had no falls. He has not taken his Lipitor for quite some time and we emphasized the need to go back on the medicine given his history of diabetes. We will check his lipids in 3 months. Apart from overweight his physical examination was unremarkable. He had a vascular study that was done recently for suspected PAD which came back normal. He did have some cold feet that is not vascular in nature in terms of map macrovascular disease but probably vasospasm. ASSESSMENT AND PLAN: 1. Hypertension, currently under control. Medication was renewed 2. Overweight encouraged patient cut back calorie intake to bring his BMI down. 3. Mixed dyslipidemia, patient has not taken his Lipitor recently, we prescribed a medicine for him to take it and to get his lipids checked in 3 months. Compliance with medical therapy was emphasized 4. Diabetes followed by local data sme, A1c is not on target. 5. Nuclear stress test 2016 was normal 6. dementia started medical therapy, progressive followed by neurology Annual visits will be scheduled Onel Lam MD, [facility] Review of Systems All other systems reviewed and are negative. Visit Vitals BP 116/68 (BP Location: Left arm, Patient Position: Sitting) Pulse 66 Ht 1.778 m (5' 10 ) Wt 94.8 kg (209 lb) BMI 29.99 kg/m Smoking Status Never BSA 2.16 m Objective Physical Exam Constitutional: Appearance: Normal appearance. He is normal weight. HENT: Nose: Nose normal. Neck: Vascular: No carotid bruit. Cardiovascular: Rate and Rhythm: Normal rate. Pulses: Normal pulses. Heart sounds: Normal heart sounds. Pulmonary: Effort: Pulmonary effort is normal. Abdominal: General: Bowel sounds are normal. Palpations: Abdomen is soft. Genitourinary: Rectum: Normal. Musculoskeletal: General: Normal range of motion. Cervical back: Normal range of motion. Right lower leg: No edema. Left lower leg: No edema. Skin: General: Skin is warm and dry. Neurological: General: No focal deficit present. Mental Status: He is alert. Psychiatric: Mood and Affect: Mood normal. Behavior: Behavior normal. Thought Content: Thought content normal. Judgment: Judgment normal. Current Medications Current Outpatient Medications: aspirin 81 mg chewable tablet, Chew 1 tablet (81 mg) once daily., Disp: , Rfl: erythromycin (Romycin) 5 mg/gram (0.5 %) ophthalmic ointment, Apply to affected eye(s) 4 times a day., Disp: , Rfl: latanoprost (Xalatan) 0.005 % ophthalmic solution, Administer 1 drop into affected eye(s) once daily., Disp: , Rfl: memantine (Namenda) 10 mg tablet, Take 1 tablet (10 mg) by mouth twice a day., Disp: , Rfl: metFORMIN (Glucophage) 500 mg tablet, Take 1 tablet (500 mg) by mouth 2 times a day with meals., Disp: , Rfl: OneTouch Ultra Test strip, TEST BLOOD SUAGRS ONCE A DAY. ICD 10 E11.65, Disp: , Rfl: atorvastatin (Lipitor) 20 mg tablet, Take 1 tablet (20 mg) by mouth once daily., Disp: 30 tablet, Rfl: 11 Assessment/Plan 1. Essential hypertension, benign Follow Up In Cardiology CBC Basic Metabolic Panel 2. Mixed hyperlipidemia Follow Up In Cardiology atorvastatin (Lipitor) 20 mg tablet Aspartate Aminotransferase Alanine Aminotransferase Lipid Panel 3. Dementia 4. Overweight documented in this encounter [facility] Work Phone: 01-18-2023 Instructions Isabel Mosqueda LPN - 01/18/2023 11:10 AM EDT Please bring all medicines, vitamins, and herbal supplements with you when you come to the office. Prescriptions will not be filled unless you are compliant with your follow up appointments or have a follow up appointment scheduled as per instruction of your physician. Refills should be requested at the time of your visit. documented in this encounter [facility] Work Phone: 10-13-2022 History of Present illness Narrative Subjective :Pt is a 77 y.o. male seen at the office complaining of fungal great toe nails . Pt is wanting treatment today.Pt relates his feet are doing fine. Pt diabetic sugars are doing well Objective: Int: Toe nails 1both feet Thick, yellow, dystrophic, crumbly , painful with subungal debris Neuro: diminished cristy feet Vas: DP - palpable, both feetPTpalpable, both feet Assessment: Onychomycosis great toe nails cristy . Diabetic neuropathy cristy feet Plan: I debrided toe nails 1-5 cristy feet with nail nippers. I also discussed treatment for the nail fungus which includes topical , oral or surgical removal. Rx penlac. RTC 3 months. Procedures documented in this encounter [facility] 09-16-2022 Hospital Discharge instructions Patient Education 09/16/2022 21:56:52 Hives, Xshh-mo-Hkmo Hives Hives are itchy, red, swollen areas on your skin. Hives can show up on any part of your body. Hives often fade within 24 hours (acute hives). New hives can show up after old ones fade. This can go on for many days or weeks (chronic hives). Hives do not spread from person to person (are not contagious). Hives are caused by your body's response to something that you are allergic to (allergen). These are sometimes called triggers. You can get hives right after being around a trigger, or hours later. What are the causes? Allergies to foods. Insect bites or stings. Exposure to pollen or pets. Spending time in sunlight, heat, or cold. Exercise. Stress. You can also get hives from other medical conditions and treatments, such as: Some medicines. Chemicals or latex. Viruses. This includes the common cold. Infections caused by germs (bacteria). Allergy shots. Blood transfusions. Sometimes, the cause is not known. What increases the risk? Being a woman. Being allergic to foods such as: ?[place] fruits. ?Milk. ?Eggs. ?Peanuts. ?Tree nuts. ?Shellfish. Being allergic to: ?Medicines. ?Latex. ?Insects. ?Animals. ?Pollen. What are the signs or symptoms? Raised, itchy, red or white bumps or patches on your skin. These areas may: ?Get large and swollen. ?Change in shape and location. ?Stand alone or connect to each other over a large area of skin. ?Sting or hurt. ?Turn white when pressed in the center (gladys). In very bad cases, your hands, feet, and face may also get swollen. This may happen if hives start deeper in your skin. How is this treated? Treatment for this condition depends on your symptoms. Treatment may include: Using cool, wet cloths (cool compresses) or taking cool showers to stop the itching. Medicines that help: ?Relieve itching (antihistamines). ?Reduce swelling (corticosteroids). ?Treat infection (antibiotics). A medicine (omalizumab) that is given as a shot (injection). Your doctor may prescribe this if you have hives that do not get better even after other treatments. In very bad cases, you may need a shot of a medicine called epinephrine to prevent a life-threatening allergic reaction (anaphylaxis). Follow these instructions at home: Medicines Take or apply psmw-dfx-ottbnsf and prescription medicines only as told by your doctor. If you were prescribed an antibiotic medicine, use it as told by your doctor. Do not stop using it even if you start to feel better. Skin care Apply cool, wet cloths to the hives. Do not scratch your skin. Do not rub your skin. General instructions Do not take hot showers or baths. This can make itching worse. Do not wear tight clothes. Use sunscreen and wear clothes that cover your skin when you are outside. Avoid any triggers that cause your hives. Keep a journal to help track what causes your hives. Write down: ?What medicines you take. ?What you eat and drink. ?What products you use on your skin. Keep all follow-up visits as told by your doctor. This is important. Contact a doctor if: Your symptoms are not better with medicine. Your joints hurt or are swollen. Get help right away if: You have a fever. You have pain in your belly (abdomen). Your tongue or lips are swollen. Your eyelids are swollen. Your chest or throat feels tight. You have trouble breathing or swallowing. These symptoms may be an emergency. Do not wait to see if the symptoms will go away. Get medical help right away. Call your local emergency services (911 in the [place] Do not drive yourself to the hospital. Summary Hives are itchy, red, swollen areas on your skin. Treatment for this condition depends on your symptoms. Avoid things that cause your hives. Keep a journal to help track what causes your hives. Take and apply [id number] and prescription medicines only as told by your doctor. Get help right away if your chest or throat feels tight or if you have trouble breathing or swallowing. This information is not intended to replace advice given to you by your health care provider. Make sure you discuss any questions you have with your health care provider. Document Revised: 04/30/2021 Document Reviewed: 05/02/2021 [employer] Patient Education 2022 [employer]. Follow Up Care 09/16/2022 21:06:14 With:ROLAND PUENTE Address: [address] [place] [address]- Business (1) When:3 to 5 days only if needed [facility] Urticarial rash (L50.9: Urti caria, unspecified) Orders: cetirizine, 10 mg = 1 cap(s), Oral, Daily, # 7 cap(s), Refills(s) 0, Pharmacy: [facility]/pharmacy #[id number], 177, cm, 09/16/22 21:11:00 EDT, Height/Length Dosing, 94, kg, 09/16/22 21:11:00 EDT, Weight Dosing famotidine, 20 mg = 1 tab(s), Tab, Oral, Once, Stop date 09/16/22 21:54:00 EDT, STAT, Start date 09/16/22 21:54:00 EDT, 09/16/22 21:54:00 EDT famotidine, 20 mg = 1 tab(s), Oral, BID, # 14 tab(s), Refills(s) 0, Pharmacy: [facility]/pharmacy #[id number], 177, cm, 09/16/22 21:11:00 EDT, Height/Length Dosing, 94, kg, 09/16/22 21:11:00 EDT, Weight Dosing loratadine, 10 mg = 1 tab(s), Tab, Oral, Daily, STAT, Start date 09/16/22 21:54:00 EDT, 09/16/22 21:54:00 EDT predniSONE, 60 mg = 3 tab(s), Oral, Daily, X 7 day(s), # 21 tab(s), Refills(s) 0, Pharmacy: [facility]/pharmacy #[id number], 177, cm, 09/16/22 21:11:00 EDT, Height/Length Dosing, 94, kg, 09/16/22 21:11:00 EDT, Weight Dosing predniSONE, 60 mg = 3 tab(s), Tab, Oral, Once, Stop date 09/16/22 21:54:00 EDT, STAT, Start date 09/16/22 21:54:00 EDT, 09/16/22 21:54:00 EDT [facility]05-04-2023 NotePatient Outreach (NETNAV) JUANJO DEVI ([id number]) 1945 M Date Time Provider Department 07/28/22 PALOMA COBB During your visit today, we recorded the following information about you: Paloma Cobb MA 07/28/2022 10:36 AM Addendum POPULATION HEALTH NAVIGATION OUTREACH Action/ not able to reach patien 2 not working numbers and voicemail full letter sent Mailed letter 07/28/2022 MM Patient Identified by Name and : NO Outreach Outcome/Action Unable to reach patient: Phone number not valid / voicemail full Letter mailed Did you use a PCP flex slot to schedule this appointment? N/A Reason for Outreach Attribution: Provider Off-boarding Payer: No coverage found. Care Gap Reviewed:: Annual Wellness visit Reminder: Reminder note to check Health Maintenance for items below Health Maintenance items due: COVID-19 VACCINE(1) Never done HEPATITIS C SCREENING Never done DTAP,TDAP,TD(1 - Tdap) Never done DIABETES SCREEN Never done SHINGRIX VACCINE(1 of 2) Never done PNEUMOCOCCAL: 65+(1 - PCV) Never done ADVANCE DIRECTIVE DISCUSSION Never done DEPRESSION ASSESSMENT Never done Navigation Signature: Paloma Cobb MA July 28, 2022 10:30 AM Allergies As of Date: 07/28/2022 (Not on File) Date Reviewed: Never Reviewed Reason for Visit: Population Health Navigation Outreach [3910] Cmt: ACO No PCP list Problem List As Of Date 07/28/2022 Noted Resolved SHOULDER REGION DIS NEC [M25.819] 06/05/2006 Encounter Status:Closed by PALOMA COBB on 07/28/22[facility] 07-28-2022 NoteHNO ID: [id number] Author: Paloma Cobb MA Service: ? Author Type: Electronic Prepress System Operator Type: Progress Notes Filed: 07/28/2022 3:52 PM Note Text: POPULATION HEALTH NAVIGATION OUTREACH Action/FYI not able to reach patien 2 not working numbers and voicemail full letter sent Mailed letter 07/28/2022 MM Patient Identified by Name and : NO Outreach Outcome/Action Unable to reach patient: Phone number not valid / voicemail full Letter mailed Did you use a PCP flex slot to schedule this appointment? N/A Reason for Outreach Attribution: Provider Off-boarding Payer: No coverage found. Care Gap Reviewed:: Annual Wellness visit Reminder: Reminder note to check Health Maintenance for items below Health Maintenance items due: COVID-19 VACCINE(1) Never done HEPATITIS C SCREENING Never done DTAP,TDAP,TD(1 - Tdap) Never done DIABETES SCREEN Never done SHINGRIX VACCINE(1 of 2) Never done PNEUMOCOCCAL: 65+(1 - PCV) Never done ADVANCE DIRECTIVE DISCUSSION Never done DEPRESSION ASSESSMENT Never done Navigation Signature: Paloma Cobb MA July 28, 2022 10:30 [facility]05-04-2023 History of Present illness Narrative* Paloma Cobb MA - 07/28/2022 10:30 AM EDT POPULATION HEALTH NAVIGATION OUTREACH Action/FYI not able to reach patien 2 not working numbers and voicemail full letter sent Mailed letter 07/28/2022 MM Patient Identified by Name and : NO Outreach Outcome/Action Unable to reach patient: Phone number not valid / voicemail full Letter mailed Did you use a PCP flex slot to schedule this appointment? N/A Reason for Outreach Attribution: Provider Off-boarding Payer: No coverage found. Care Gap Reviewed:: Annual Wellness visit Reminder: Reminder note to check Health Maintenance for items below Health Maintenance items due: COVID-19 VACCINE(1) Never done HEPATITIS C SCREENING Never done DTAP,TDAP,TD(1 - Tdap) Never done DIABETES SCREEN Never done SHINGRIX VACCINE(1 of 2) Never done PNEUMOCOCCAL: 65+(1 - PCV) Never done ADVANCE DIRECTIVE DISCUSSION Never done DEPRESSION ASSESSMENT Never done Navigation Signature: Paloma Cobb MA July 28, 2022 10:30 AM [facility] History of Present illness Narrative* Reinaldo Dasilva DPM - 07/14/2022 8:46 AM EDT Subjective :Pt is a 77 y.o. male seen at the office complaining of long dystrophic toe nails and cold feet. Pt is wanting treatment today. Patient does have some dementia and is accompanied by his who relates he has had a stroke in the past. Patient is a diabetic with a hemoglobin A1c of 6.4. Objective: Int: Toe nails 1, 2, 3, 4, or 5both feet long thick and dystrophic Hyperkeratotic 0 lesions both feet Neuro: numbness Vas: DP - nonpalpable, both feetPTnonpalpable, both feet Assessment: Dystrophic toenails 1 through 5 bilateral feet, diabetic neuropathy and peripheral vascular disease of the lower extremities. Plan: I debrided toe nails 1-5 cristy feet with nail nippers. I also sent patient for arterial Dopplerstudies of both lower extremities. I told patient's if her complains of pain that wakes him up at nighttime or when he is walking to bring him back sooner. Reappoint in 1 month to discuss arterial Doppler studies documented in this [id number] History of Present illness Narrative* Reinaldo Dasilva DPM - 04/14/2022 12:44 PM EST Patient: Juanjo Devi Date of : 1945 (77 y.o.) PCP: Roland Puente MD Procedures I debrided toenails 1 through 5 bilateral feet with nail nippers. ASSESSMENT/PLAN: Juanjo Devi 77 y.o. male with history of dystrophic toenails 1 through 5 bilateral feet. Diabetic neuropathy bilateral feet. Hallux valgus with bunion and contracted hammertoes 2 through 5 bilateral. Plan: Patient was recommended to wear diabetic extra-depth shoes with 3 pairs of heat moldable liners. Patient was not interested in a prescription today. If he changes his mind he is to call. Appt in 3 months Assessment & plan notes cannot be loaded without a specified hospital service. SUBJECTIVE: History Since Last Visit: 77-year-old male seen at office for diabetic nail care. Patient has a history of hammertoes and bunion deformity. Review of Systems: Type II diabetic with neuropathy OBJECTIVE: Physical Examination: Integument-toenails 1 through 5 are long and dystrophic bilateral feet. Neuro-diminished bilateral feet. Musculoskeletal-lateral deviated hallux with a medial bony prominence of the first metatarsal head bilateral feet. Patient has contracted toes 2 through 4 bilateral feet. Vascular-DP PT pulses are 1 of 4 bilateral feet BP 135/84 (BP Location: Left arm, Patient Position: Sitting, BP Cuff Size: X- large Adult) Pulse 67 Temp 98.6 F (37 C) (Infrared) Laboratory and Additional Data Reviewed: Reviewed:[id number]} No image results found. documented in this encounterFlioHealthEvaluation note* Diagnosis Dystrophic nail- Primary Other specified disease of nail Diabetic mononeuropathy associated with type 2 diabetes mellitus (HCC) Bilateral bunions Hammer toes, bilateral [facility] Diagnosis Dystrophic nail- Primary Other specified disease of nail Diabetic polyneuropathy associated with type 2 diabetes mellitus (HCC) Arterial insufficiency of lower extremity (HCC) [facility]* Diagnosis Onychomycosis- Primary Dermatophytosis of nail Diabetic mononeuropathy associated with type 2 diabetes mellitus (HCC) [facility]* Diagnosis Essential hypertension, benign Mixed hyperlipidemia documented in this encounter [facility] Work Phone: Evaluation note* Diagnosis Diabetic mononeuropathy associated with type 2 diabetes mellitus (HCC)- Primary Onychomycosis Dermatophytosis of nail documented in this encounter [facility] course Narrative No data available for this section [facility] No data available for this section [facility] (narrative)* Consultation (Routine) - Authorized Specialty Diagnoses / Procedures Referred By Antonette t Referred To Contact Cardiology Diagnoses Essential hypertension, benign Mixed hyperlipidemia Procedures Follow Up In Cardiology Onel Lam MD [address] [facility] [address], [place] [address] [place] [id number] Onel Lam MD [address] [facility] [address], [facility] [address] [place] [address] Referral ID Status Reason Start Date Expiration Date V isits Requested Visits Authorized [id number] Authorized 01/18/2023 01/18/2024 1 1 T [facility] Work Phone: Chief Complaint * JUANJO DEVI is being seen for an annual follow-up of. * Patient is in the office for annual follow-up accompanied by his . I last saw him in consultation April 2020 at [facility] with atypical chest pain with negative work-up. He remains chest pain-free and denies any palpitations or dyspnea. His weight is above target his blood pressure is under control. He has not had any blood work. He is diabetic managed by a local data sme. There has been no recent blood work and no recent A1c. His examination is normal except for obesity. * ASSESSMENT AND PLAN: * 1. Hypertension, currently under control. Medication was renewed * 2. Obesity. Encouraged patient cut back calorie intake to bring his BMI down. * 3. Mixed dyslipidemia, on medical therapy with rosuvastatin, lipid profile among other labs were ordered today. * 4. Diabetes on a combination of Januvia and Metformin followed by local data sme. * 5. Nuclear stress test 2016 was normal * Annual visits will be scheduled * Onel Lam MD, FACC * JUANJO DEVI is being seen for an annual follow-up of. * Patient is in the office for follow-up with his . He has not had any events since he was last seen in the office year ago. His tells me that he is having early dementia and has been prescribed medications. He does not seem to acknowledge that. His lab data from August 2021 were reviewed and all his numbers look great. Currently has no complaints. He is lost 12 pounds from last visit. Review of system essentially normal physical examination was only remarkable for obesity. * ASSESSMENT AND PLAN: * 1. Hypertension, currently under control. Medication was renewed * 2. Obesity. Encouraged patient cut back calorie intake to bring his BMI down. * 3. Mixed dyslipidemia, on medical therapy with rosuvastatin, lipid profile among other labs were ordered today. * 4. Diabetes on a combination of Januvia and Metformin followed by local data sme. * 5. Nuclear stress test 2016 was normal * 6. Beginning of dementia started medical therapy, mild. * Annual visits will be scheduled * Onel Lam MD, [facility] Family History No Family History Records FoundUnknown Family Member Name Dates Details Family history of cardiac di sorder: Mother(V17.49, Z82.49) Status:Active Hypertension, benign: Mother , Sister Status:Active Family history of myocardial infarction: Brother(V17.3, Z82.49) Status:Active Unknown Family Member Name Dates Details Family history of cardiac di sorder: Mother(V17.49, Z82.49) Status:Active Hypertension, benign: Mother , Sister Status:Active Family history of myocardial infarction: Brother(V17.3, Z82.49) Status:Active Summary Purpose Advance Directives No Advanced Directives Records FoundNo Advanced Directives Records FoundNo Advanced Directives Records FoundNo Advanced Directives Records FoundNo Advanced Directives Records FoundNo Advanced Directives Records FoundNo Advanced Directives Records Found Reason for Referral Specialty Diagnoses / Procedures Referred By Antonette t Referred To Contact Diagnoses Arterial insufficiency of lower extremity (HCC) Procedures Segmental Doppler Lower Extremity Arterial Reinaldo Dasilva DPM [address] [place] [address] [address] Phone: [phone] Referral ID Status Reason Start Date Expiration Date Visits Requested Visits Authorized [id number] Authorized Patient Preference 07/14/2022 07/14/2023 1 1 Additional Source Comments Source Comments (unrecognize d section and content) In the event this informatio n is protected by the Federal Confidentiality of Alcohol and Drug Abuse Patient Records regulations: The Federal rules restrict any use of the information to criminally investigate or prosecute any alcohol or drug abuse patient.[facility] the event this information is protected by the Federal Confidentiality of Alcohol and Drug Abuse Patient Records regulations: The Federal rules restrict any use of the information to criminally investigate or prosecute any alcohol or drug abuse patient.[facility] HospitalIn the event this information is protected by the Federal Confidentiality of Alcohol and Drug Abuse Patient Records regulations: The Federal rules restrict any use of the information to criminally investigate or prosecute any alcohol or drug abuse patient.[facility] HospitalIn the event this information is protected by the Federal Confidentiality of Alcohol and Drug Abuse Patient Records regulations: The Federal rules restrict any use of the information to criminally investigate or prosecute any alcohol or drug abuse patient.[facility] HospitalIn the event this information is protected by the Federal Confidentiality of Alcohol and Drug Abuse Patient Records regulations: The Federal rules restrict any use of the information to criminally investigate or prosecute any alcohol or drug abuse patient.[facility] Care Teams (unrecognized sec tion and content) Blood Bank Laboratory Technologist Relationship Specialty Start Date End Date Pcp, No PCP - General 10/09/21 04/26/22 Blood Bank Laboratory Technologist Relationship Specialty Start Date End Date Roland Puente MD [address] [place] [address] PCP - General Family Medicine 04/14/22 Blood Bank Laboratory Technologist Relationship Specialty Start Date End Date Roland Puente MD [address] [place] [address] PCP - General Family Medicine 04/14/22 Blood Bank Laboratory Technologist Relationship Specialty Start Date End Date Roland Puente MD [address] [place] [address] PCP - General Family Medicine 04/14/22 Blood Bank Laboratory Technologist Relationship Specialty Start Date End Date Roland Puente MD [address] [place] [address] PCP - General 01/21/21 Blood Bank Laboratory Technologist Relationship Specialty Start Date End Date Roland Puente MD [address] [place] [address] PCP - General Family Medicine 04/14/22 (unrecognized sect ion and content) No Status Records FoundNo Status Records FoundNo Status Records FoundNo Status Records FoundNo Status Records FoundNo Status Records FoundNo Status Records Found INFORMATION SOURCE (unrecogn ized section and content) DATE CREATED AUTHOR AUTHOR'S ORGANIZ ATION 01/20/2022 [employer] DATE CREATED AUTHOR AUTHOR'S ORGANIZ ATION 07/28/2022 [facility] DATE CREATED AUTHOR AUTHOR'S ORGANIZ ATION 08/04/2022 [facility] DATE CREATED AUTHOR AUTHOR'S ORGANIZ ATION 09/18/2022 [facility] DATE CREATED AUTHOR AUTHOR'S ORGANIZ ATION 01/22/2023 [facility] DATE CREATED AUTHOR AUTHOR'S ORGANIZ ATION 01/27/2023 [facility] Reason for Visit (unrecogniz ed section and content) Reason Comments Nail Care Diabetic a1c 6.4 Reason Onset Date Comments Population Health Navigation Outreach 07/28/2022 ACO No PCP list Reason Comments Nail Care Diabetic nail care. A1c 6.8 Reason Comments Follow-up 1 year Reason Comments Nail Care Diabetic FOR RECORDS PERTAINING TO PATIENTS WHO ARE OR HAVE BEEN ENROLLED IN A CHEMICAL DEPENDENCY/SUBSTANCEABUSE PROGRAM, SOME INFORMATION MAY BE OMITTED. This clinical summary was aggregated from multiple sources. Caution should be exercised in using it in the provision of clinical care. This summary normalizes information from multiple sources, and as a consequence, information in this document may materially change the coding, format and clinical context of patient data. In addition, data may be omitted in some cases. CLINICAL DECISIONS SHOULD BE BASED ON THE PRIMARY CLINICAL RECORDS. [facility]. provides no warranty or guarantee of the accuracy or completeness of information in this document.
[2023-04-24 10:33] LABS: Hematocrit 48.6 % (40-54); Hemoglobin 16.2 g/dL (13.0-16.5); Mean Corp Hgb Conc 33.3 g/dL (32-36); Mean Corpuscular Hgb 30.4 pg (27.0-32.0); Mean Corpuscular Volume 91.2 fL (80-94); Mean Platelet Vol. 9.8 fl (6.2-12.0); Platelet Count 205 K/mm3 (150-450); RBC Distribution Width CV 12.6 % (11.6-14.6); RBC Distribution Width SD 41.5 fl (35.1-43.9); Red Blood Count 5.33 M/mm3 (4.6-6.2); White Blood Count 7.1 K/mm3 (4.4-11.0)
[2023-04-24 11:21] LABS: AST(SGOT) 11 U/L (15-37); Alanine Aminotransfer ALT/SGPT 20 U/L (16-61); Anion Gap 7 (5-15); BUN 17 mg/dL (7-18); BUN/Creat Ratio 12.6 RATIO (10-20); Calcium,Total 9.3 mg/dL (8.5-10.1); Chloride 109 mmol/L (98-107); Cholesterol 146 mg/dL (200); Creatinine, Serum 1.35 mg/dL (0.70-1.30); EST Glomerular Filtration Rate 54 mL/min (>60); Est Glom Filt Rate - Afr Amer 66 mL/min (>60); Glucose 297 mg/dL (74-106); High Density Lipoprotein 45 mg/dL; Potassium 4.3 mmol/L (3.5-5.1); Sodium Level 138 mmol/L (136-145); Triglycerides 140 mg/dL; Very Low Density Lipoprotein 28 mg/dL (5-40)
== END | disposition home or self-care (01) ==
PROVIDERS: PCP Family Medicine
DX: E78.2 Mixed hyperlipidemia (principal); I10 Essential (primary) hypertension
CPT/HCPCS: 36415; 80048; 80061; 84450; 84460; 85027